=== PATIENT | female | born 1930 | race African-American/Black ===

== ENCOUNTER 2018-08-09 09:29 | Emergency (ER) | payer OTHER ==
[~2018-08-09] VITALS: Ht 167.6 cm; Wt 72.6 kg
[~2018-08-09 09:29] MED LIST: AMLODIPINE BESY10 MG PO; CLONIDINE HCL0.2 M2 PO; HCTZ PO; LISINOPRIL20 MG PO; NORCO 5-325 TA1 EACH PO; TOPROL XL100 MG PO; ZOCOR 20 MG TAB20 M1 PO
[2018-08-09 09:35] VITALS: BP 124/71
[2018-08-09] MEDS ORDERED: HYDROXYZINE HCL25 M1 PO (10:08)
[2018-08-09] MEDS ORDERED: PREDNISONE 20 M20 MG PO (10:11)
[2018-08-09] MEDS ORDERED: PEPCID20 MG PO (10:11)
== END 2018-08-09 10:20 | disposition home or self-care (01) ==
LOC: ER 09:29
DX: L50.9 Urticaria, unspecified (principal); I10 Essential (primary) hypertension; E78.00 Pure hypercholesterolemia, unspecified; Z85.3 Personal history of malignant neoplasm of breast; Z85.41 Personal history of malignant neoplasm of cervix uteri

== ENCOUNTER 2019-03-16 17:54 | Inpatient (IN) | payer OTHER ==
[~2019-03-16] VITALS: Ht 165.1 cm; Wt 71.9 kg
[~2019-03-16 17:54] MED LIST changes: +HYDROXYZINE HCL25 M1 PO; +PEPCID20 MG PO; +PREDNISONE 20 M20 MG PO
[2019-03-16 17:58] VITALS: BP 180/88
[2019-03-16 19:13] LABS: ABSOLUTE NEUTROPHILS 3.2 thou/uL (1.4-8.2); BASOPHILS 0.6 % (0.0-2.0); HEMATOCRIT 35.7 % (37.0-47.0); HEMOGLOBIN 12.1 gm/dL (12.0-15.0); LYMPHOCYTES 27.5 % (24.0-44.0); MCH 29.5 pg (26.0-34.0); MCHC 33.8 g/dL (28.0-37.0); MCV 87.3 fL (80.0-100.0); PLATELET COUNT 190 thou/uL (150-400); POLYS 59.9 % (36.0-66.0); RBC 4.09 mil/uL (4.20-5.00); RDW 13.7 % (10.5-14.5); WBC 5.3 thou/uL (4.0-11.0)
[2019-03-16] MEDS ORDERED: CARVEDILOL25 MG PO (19:17)
[2019-03-16] MEDS ORDERED: OXYBUTYNIN 5 MG5 M2 PO (19:18)
[2019-03-16 19:46] LABS: POC CA IONIZED 4.7 mg/dL (4.5-5.3); POC CREATININE 1.9 mg/dL (0.6-1.3); POC HEMOGLOBIN 11.6 g/dL (12.0-15.0); POC POTASSIUM 4.6 mmol/L (3.5-5.1)
[2019-03-16 20:18] LABS: URINE BILIRUBIN NEGATIVE (Negative); URINE BLOOD TRACE (Negative); URINE CLARITY CLEAR; URINE COLOR YELLOW; URINE GLUCOSE-RANDOM* NEGATIVE (Negative); URINE KETONES NEGATIVE (Negative); URINE NITRITE-REFLEX NEGATIVE (Negative); URINE PROTEIN (DIPSTICK) NEGATIVE (Negative); URINE UROBILINOGEN 0.2 E.U./dl (0.2-1.0)
[2019-03-16 20:21] LABS: URINE LEUKOCYTES-REFLEX 1+ (Negative)
[2019-03-16 20:25] LABS: CALCIUM 8.4 mg/dL (8.5-10.1); CREATININE 1.6 mg/dL (0.6-1.0); POTASSIUM 4.6 mmol/L (3.5-5.1)
[2019-03-16 20:31] LABS: ALBUMIN 3.2 g/dL (3.4-5.0); BACTERIA-REFLEX 1-9 Few /HPF (None Seen); CASTS None Seen /LPF (None Seen); CRYSTALS None Seen /LPF (None Seen); MUCUS 0-3 Light strn/LPF (None Seen); SQUAMOUS 0-3 Few /LPF (0-3); TOTAL BILIRUBIN 0.4 mg/dL (<0.1-1.0); TOTAL PROTEIN 7.2 g/dL (6.4-8.2); URINE RBC 0-2 Rare /HPF (0-2); URINE WBC-REFLEX 6-15 Few /HPF (0-5); WBC CLUMPS Rare (None Seen)
[2019-03-16 20:35] VITALS: BP 138/60
[2019-03-16 20:35] LABS: APTT 26.1 Seconds (24.5-32.8); PROTIME 10.4 Seconds (9.3-11.4)
[2019-03-16 21:02] VITALS: BP 138/60
[2019-03-16 21:16] VITALS: BP 152/69
[2019-03-16 23:45] LABS: CHOLESTEROL 166 mg/dL (<200); HDL CHOLESTEROL 63 mg/dL (>40); LDL CHOLESTEROL 94 mg/dL (<100); TC:HDL 2.6 Ratio (Not establshd); TRIGLYCERIDE 47 mg/dL (<150); VLDL 9 mg/dL (<40)
[2019-03-16 23:54] LABS: SERUM ASSESSMENT Clear
[2019-03-17] VITALS (7 sets, daily range): BP systolic 140–184; BP diastolic 62–81
--- NOTE | 2019-03-17 05:57 | NUR ---
PT ARRIVED VIA CART FROM ER. PLACED IN ROOM 359. ADMISSION ASSESSMENTS COMPLETED. NIH BRIEF SCORE ZERO. PT MAKING PROGRESS TOWARDS GOALS. PT INCONTINENT X2 OVERNIGHT. DAUGHTER STATES SHE IS OFTEN INCONTINENT BUT MOSTLY NIGHT DURING SLEEP. PT UP TO TOILET X2 WITH ONLY SBA. DENIED ANY DIZZY OR LIGHTHEADEDNESS. STABLE GAIT.
--- NOTE | 2019-03-17 08:08 | EKG ---
[address] [address] ELECTROCARDIOGRAM REPORT Name: SHARMAINEALDO Room #: 359-P ADM IN M.R.#: [id number] Admission: 03/16/19 Attend Phys: Killian Cervantes MD Discharge: Date of : 31 Report #: [id number] THIS REPORT FOR: //name// [facility] ED Test Date: 2019-03-16 Test Time: 19:08:09 Pat Name: ALDO SCHMID Department: Room: [facility] Gender: F Kindergarten Paraprofessional: : 1930 Requested By: Radha Samano Order Number: [id number] MD: Shahzad Sanchez Measurements Intervals [place] Rate: 70 P: 50 NM: 191 QRS: -10 QRSD: 78 T: 17 QT: 375 QTc: 405 Interpretive Statements Sinus tachycardia No previous ECG available for comparison Electronically Signed On 03-17-2019 8:08:15 CDT by Shahzad Sanchez [email or web address] <ELECTRONICALLY SIGNED> By: Shahzad Sanchez MD 03/17/19 [phone] MD LIBBY Aguilar
[2019-03-17 12:29] LABS: CALCIUM 8.7 mg/dL (8.5-10.1); CREATININE 1.2 mg/dL (0.6-1.0); POTASSIUM 3.8 mmol/L (3.5-5.1)
--- NOTE | 2019-03-17 13:35 | NUR ---
Today patient had carotid US , which reported no hemodynamically significant stenosis; MRI today reported no evidence of acute infarction. Echocardiogram results pending at this time. Patient is working towards discharge goals.
--- NOTE | 2019-03-17 14:15 | NUR ---
INITIAL ASSESSMENT: SW reviewed chart and spoke with nursing and attending physician. Pt was admitted from home due to TIA. Therapy ordered to evaluate pt. SW met with pt and dtr at bedside. Introduced role of SW. Pt is alert/orientated x 4. Pt reports she lives at home with her dtr. Prior to admission, pt was independent with ADLS. Pt has a cane and walker, but does not use them. 1 step to enter the home. No steps inside. No hx of services or post-acute placement. Pt's PCP is at [facility]-unable to recall physician's name. Plan is for pt to discharge home when medically stable. SW is following to assist as needed with discharge planning..
--- NOTE | 2019-03-17 14:32 | 2DMMODE ---
[facility] [address] [place] [address] 2 D/M-MODE ECHOCARDIOGRAM Name: ALDO SCHMID Room #: 359-P ADM IN .R.#: [id number] Admission: 03/16/19 Attend Phys: Killian Cervantes MD Discharge: Date of : 31 Report #: [id number] THIS REPORT FOR: //name// APPROVED REPORT Study performed: 03/17/2019 12:41:38 EXAM: Comprehensive 2D, Doppler, and color-flow Echocardiogram Patient Location: Echo lab Room #: 359 Status: routine BSA: 1.79 HR: 68 bpm BP: 149/66 mmHg Rhythm: NSR Other Information Study Quality: Adequate Indications TIA VS. CVA. Hx: HTN, HLP, CA. Echo Enhancing Agent Indication: Rule out Shunt Agent(s) / Amount(s) Used: Agitated Saline 6 cc 2D Dimensions RVDd: 39.98 mm IVSd: 10.42 (7-11mm) LVOT Diam: 20.58 (18-24mm) LVDd: 41.95 mm PWd: 10.56 (7-11mm) LVDs: 30.64 (25-40mm) Aortic Root: 31.70 mm Volumes Left Atrial Volume (Systole) Single Plane 4CH: 54.17 mL Single Plane 2CH: 62.05 mL LA ESV Index: 35.00 mL/m2 Aortic Valve AoV Peak Anthony.: 1.46 m/s AO Peak Gr.: 8.49 mmHg LVOT Max P.22 mmHg LVOT Max V: 1.03 m/s NADJA Vmax: 2.34 cm2 [facility] [address] [place] [address] 2 D/M-MODE ECHOCARDIOGRAM Name: ALDO SCHMID Room #: 359-P [facility] IN [facility].#: [id number] Admission: 03/16/19 Attend Phys: Killian Cervantes MD Discharge: Date of : 31 Report #: [id number] Mitral Valve E/A Ratio: 0.7 MV Decel. Time: 256.53 ms MV E Max Anthony.: 0.96 m/s MV A Anthony.: 1.37 m/s MV PHT: 74.39 ms IVRT: 92.27 ms Pulmonary Valve PV Peak Anthony.: 0.92 m/s PV Peak Gr.: 3.40 mmHg Pulmonary Vein P Vein S: 0.47 m/s P Vein A: 0.33 m/s P Vein D: 0.23 m/s P Vein A Dur.: 101.5 msec P Vein S/D Ratio: 2.04 Tricuspid Valve TR Peak Anthony.: 2.50 m/s RAP Estimate: 5.00 mmHg TR Peak Gr.: 24.00 mmHg PA Pressure: 29.00 mmHg Left Ventricle The left ventricle is normal size. There is normal LV segmental wall motion. Mild basal septal hypertrophy is present. Left ventricular systolic function is normal. LVEF is 55%. Mild diastolic dysfunction Right Ventricle The right ventricle is normal size. The right ventricular systolic function is normal. Atria Left atrium is mildly dilated. No shunting noted by contrast bubble injection. The right atrium size is normal. 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 Atrial septal aneurysm Aortic Valve The aortic valve is trileaflet, mildly sclerotic No aortic regurgitation is present. There is no aortic valvular stenosis. Mitral Valve Mitral valve leaflets are mildly thickened. Mild mitral annular calcification. Trace to mild mitral regurgitation. No evidence of mitral valve stenosis. [facility] [address] [place] [address] 2 D/M-MODE ECHOCARDIOGRAM Name: ALDO SCHMID Room #: 359-P [facility] IN ..#: [id number] Admission: 03/16/19 Attend Phys: Killian Cervantes MD Discharge: Date of : 31 Report #: [id number] Tricuspid Valve The tricuspid valve is normal in structure. Trace to mild tricuspid regurgitation. Estimated PAP is 30mmHg. Pulmonic Valve The pulmonary valve is normal in structure. There is no pulmonic valvular regurgitation. Great Vessels The aortic root is normal in size. Ascending aorta is not well visualized. IVC is normal in size and collapses >50% with inspiration. Pericardium There is no pericardial effusion. <Conclusion> Left ventricular systolic function is normal. There is normal LV segmental wall motion. LVEF is 55%. Mild diastolic dysfunction The right atrium size is normal. 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 Atrial septal aneurysm No shunting noted by contrast bubble injection. The aortic valve is trileaflet, mildly sclerotic. No aortic regurgitation, no stenosis Mitral valve leaflets are mildly thickened. Mild mitral annular calcification. Trace to mild mitral regurgitation. Trace to mild tricuspid regurgitation. Estimated pulmonary artery pressure of 30mmHg. There is no pericardial effusion. <ELECTRONICALLY SIGNED> By: Lenadr Lopez MD, FACC 03/17/19 143 143 143 Lenard Lopez MD, FACC /INF
[2019-03-18 04:36] VITALS: BP 146/60
[2019-03-18 05:21] LABS: HEMATOCRIT 34.5 % (37.0-47.0); HEMOGLOBIN 11.6 gm/dL (12.0-15.0); MCH 29.4 pg (26.0-34.0); MCHC 33.5 g/dL (28.0-37.0); MCV 87.8 fL (80.0-100.0); RBC 3.94 mil/uL (4.20-5.00); RDW 13.6 % (10.5-14.5); WBC 5.5 thou/uL (4.0-11.0)
[2019-03-18 05:37] LABS: CALCIUM 8.6 mg/dL (8.5-10.1); CREATININE 1.2 mg/dL (0.6-1.0)
[2019-03-18 07:25] VITALS: BP 148/63
--- NOTE | 2019-03-18 07:49 | NUR ---
PT MAKING PROGRESS TOWARDS GOALS. OCCASIONALLY INCONTINENT OVERNIGHT OF URINE, PT PREFERS TO WEAR BRIEFS WHILE IN BED. DENIES ANY COMPLAINTS. STEADY GAIT WHEN UP TO TOILET. DENIES ANY SOA WITH ACTIVITY, DENIES ANY WEAKNESS ON THE LEFT SIDE.
--- NOTE | 2019-03-18 12:31 | NUR ---
DISCHARGE NOTE: SW reviewed chart and spoke with nursing and attending physician. Pt is medically stable for discharge home today. 5N evaluated pt yesterday and states pt is too high level for 5N. SW met with pt and dtr at bedside to discuss discharge plan. Pt and dtr deny having any discharge needs. Pt will follow up with her PCP. Pt's family to provide transportation home. No additional SW needs identified at this time, but is available to assist should needs arise.
[2019-03-18] MEDS ORDERED: ASPIR 8181 MG PO (13:21)
[2019-03-18 13:56] VITALS: BP 148/63
--- NOTE | 2019-03-18 14:10 | NUR ---
ASSUMED PAIENT CARE AT 0700. A/O X4. UP AD LUCIAN. NO WEAKNESS. PROGRESSING TOWARDS POC GOALS. DC TO HOME NOW.
--- NOTE | 2019-03-19 14:17 | HC ---
[facility] [place] [address] CONSULTATION Name: ALDO SCHMID Room #: 359-P [facility] IN ..#: [id number] Admission: 03/16/19 Attend Phys: Killian Cervantes MD Discharge: 03/18/19 Date of : 31 Report #: [id number] THIS REPORT FOR: //name// CC: FAM unknown Killian Cervantes DATE OF SERVICE: 03/17/2019 HISTORY OF PRESENT ILLNESS: This is an 88-year-old female patient who was evaluated by me for the left-sided numbness. It started acutely. It was noticed by Emergency Room physician, but by the time I saw the patient in the Emergency Room, the patient's symptoms have mostly resolved. The patient was seen in the Emergency Room yesterday and she was seen today. In the Emergency Room, this patient had a CT angiogram and that was reviewed with the radiologist and there is no stroke or any occlusion, which was noticed. The patient's MRI is pending. The patient denies this kind of symptom before. She does not know anything which makes it better or worse. REVIEW OF SYSTEMS: Indicate that she does have a history of hypertension, high cholesterol, breast carcinoma, uterine carcinoma. She is on multiple medications. PAST MEDICAL HISTORY: Negative for CVA. FAMILY HISTORY: Negative for early age CVA. SOCIAL HISTORY: She does not drink alcohol. PHYSICAL EXAMINATION: The patient's examinations indicate she is alert. She is responsive. She can follow simple and complex command. That examination is same as yesterday. Her speech looks intact. Cranial nerve examination 2-12 does not appear to be showing any definite abnormality. She did have some facial weakness yesterday, but that is resolved today. She is still slightly weak in the left upper and left lower extremity, but is much better than yesterday. No change in the rest of the examination. Blood pressure is 149/66, respiration is 12, pulse is 68, temperature is 98.1. LABORATORY DATA: WBC count is 5.3. It looks like this patient had a CT angiogram yesterday in the Emergency Room, but her creatinine was 1.9. Because of that, I will suggest monitoring the patient's kidney function. CT angiogram was negative and it was done before my consultation. IMPRESSION: This patient's presentation is consistent with cerebrovascular accident. However, the history is not very classical. We will await the MRI to see what it shows. The patient's creatinine was high at 1.9. She did get the contrast, although she also got a fluid bolus of 1000 mL. I will still suggest [address] [address] CONSULTATION Name: ALDO SCHMID Room #: 359-P [facility] IN ..#: [id number] Admission: 03/16/19 Attend Phys: Killian Cervantes MD Discharge: 03/18/19 Date of : 31 Report #: [id number] repeating the creatinine to make sure that did not change. I went ahead and ordered that. She will need PT, OT and speech therapy and we will see how she does. I had discussed extensively with the patient and approximately 50 minutes of time was spent taking care of this patient yesterday and today and majority of that time was spent counseling the patient, especially counseling about TPA or not TPA, and other aspect with the patient. <ELECTRONICALLY SIGNED> By: Clayton Hunt MD 03/19/19 1417 [id number] Clayton Hunt MD /nt
--- NOTE | 2019-03-30 12:00 | HC ---
[facility] [place] [address] CONSULTATION Name: ALDO SCHMID Room #: 359-P [facility] IN .R.#: [id number] Admission: 03/16/19 Attend Phys: Killian Cervantes MD Discharge: 03/18/19 Date of : 31 Report #: [id number] THIS REPORT FOR: //name// CC: FAM unknown Killian Cervantes DATE OF SERVICE: 03/17/2019 1HISTORY OF PRESENT ILLNESS: The patient is an 88-year-old -Iranian female who was admitted with left-sided weakness and left-sided numbness. No speech problems. She is undergoing MRI scan and Doppler evaluation as part of a workup to rule out a CVA. She notes that her symptoms involving the left side are much improved. Denies any current problems with coordination or focal weakness. We are seeing her in Rehabilitation Medicine consultation. She has also been diagnosed with urinary tract infection and has been started on Rocephin. She also has some acute renal insufficiency superimposed on chronic kidney disease and is being gently hydrated. She is being allowed permissive hypertension. PAST MEDICAL HISTORY: Includes hypertension, elevated cholesterol, uterine cancer, status post hysterectomy, breast cancer, status post right mastectomy, foot surgery, skin graft, right hand. HABITS: Former tobacco smoker for 20 years. Noted to be a light smoker per report. No history of alcohol abuse. SOCIAL HISTORY: She lives in a house with her daughter, 1 floor, 2 steps. Did not utilize gait aids except that she would use a cane long distances. Daughter is retired and could assist. There are other daughters involved as well. MEDICATIONS: Please see the full medication listing. ALLERGIES: No known drug allergies. REVIEW OF SYSTEMS: No current complaints of chest pain, shortness of breath or abdominal discomfort. PHYSICAL EXAMINATION: GENERAL: An 88-year-old -Iranian female, in no obvious distress. The patient is alert, pleasant. VITAL SIGNS: Last recorded temperature 98.2, pulse 74, respirations 16, blood pressure 140/74. HEENT: Appeared to be benign. NEUROLOGIC: Cranial nerves grossly intact. Facies are symmetric. She has functional range of motion of both upper extremities. I could not detect any obvious focal weakness of either the right upper or left upper extremity. She [address] [address] CONSULTATION Name: ALDO SCHMID Room #: 359-P [facility] IN .R.#: [id number] Admission: 03/16/19 Attend Phys: Killian Cervantes MD Discharge: 03/18/19 Date of : 31 Report #: [id number] appeared to have good coordination. Lower extremities, no focal calf swelling. Appeared to have reasonable strength at least a grade 4-/5. No obvious focal coordination deficits. Sensation was intact to simultaneous stimulation bilateral upper and lower extremities. IMPRESSION: An 88-year-old right-handed -Iranian female with the following problem list: 1. Left-sided weakness and numbness, which are much improved, rule out cerebrovascular accident versus transient ischemic attack. 2. Urinary tract infection. 3. Acute renal insufficiency superimposed on chronic kidney disease. 4. Hypertension. 5. Hyperlipidemia. PLAN: Diagnostic workup continues. Therapies are to evaluate her regarding her current functional level. We will be glad to follow along with you regarding her rehab therapy needs. <ELECTRONICALLY SIGNED> By: Marin Miller MD 03/30/19 [id number] [id number] Marin Miller MD /[facility]
== END 2019-03-18 14:16 | disposition home or self-care (01) | DRG 69 ==
LOC: ER 17:54 → EROBS 19:35 → 3W 19:35 → ENTRNSPT 03-18 14:09 → EDTRNSPTSTS 03-18 14:12 → 3W 03-18 14:16
PROVIDERS: Nurse Practitioner Acute Care; Psychiatry & Neurology Neuromuscular Medicine; Student in an Organized Health Care Education/Training Program; ADMIT Hospitalist
DX: G45.9 Transient cerebral ischemic attack, unspecified (principal); N17.0 Acute kidney failure with tubular necrosis; N39.0 Urinary tract infection, site not specified; E78.00 Pure hypercholesterolemia, unspecified; N18.9 Chronic kidney disease, unspecified; I12.9 Hypertensive chronic kidney disease with stage 1 through stage 4 chronic kidney disease, or unspecified chronic kidney disease; N32.81 Overactive bladder; E78.5 Hyperlipidemia, unspecified; Z85.42 Personal history of malignant neoplasm of other parts of uterus; Z85.3 Personal history of malignant neoplasm of breast; Z90.710 Acquired absence of both cervix and uterus; Z90.11 Acquired absence of right breast and nipple; Z87.891 Personal history of nicotine dependence
CPT/HCPCS: 10879

== ENCOUNTER 2021-04-18 12:48 | Emergency (ER) | payer OTHER ==
[~2021-04-18] VITALS: Ht 167.6 cm; Wt 72.6 kg
[~2021-04-18 12:48] MED LIST changes: +ASPIR 8181 MG PO; +CARVEDILOL25 MG PO; +OXYBUTYNIN 5 MG5 M2 PO
[2021-04-18 13:50] LABS: URINE BILIRUBIN NEGATIVE (Negative); URINE BLOOD 1+ (Negative); URINE COLOR YELLOW; URINE GLUCOSE-RANDOM* NEGATIVE (Negative); URINE KETONES NEGATIVE (Negative); URINE NITRITE-REFLEX NEGATIVE (Negative); URINE PROTEIN (DIPSTICK) 1+ (Negative); URINE UROBILINOGEN 0.2 E.U./dl (0.2-1.0)
[2021-04-18 13:50] LABS: HEMATOCRIT 30.4 % (37.0-47.0); HEMOGLOBIN 10.2 gm/dL (12.0-15.0); MCH 27.3 pg (26.0-34.0); MCHC 33.6 g/dL (28.0-37.0); MCV 81.1 fL (80.0-100.0); PLATELET COUNT 447 thou/uL (150-400); RBC 3.74 mil/uL (4.20-5.00); RDW 15.5 % (10.5-14.5); WBC 11.3 thou/uL (4.0-11.0)
[2021-04-18 13:51] LABS: URINE CLARITY HAZY; URINE LEUKOCYTES-REFLEX 3+ (Negative)
[2021-04-18 13:58] LABS: CALCIUM 8.9 mg/dL (8.5-10.1); CREATININE 1.6 mg/dL (0.6-1.0); POTASSIUM 4.3 mmol/L (3.5-5.1)
[2021-04-18 13:59] LABS: BACTERIA-REFLEX >30 Many /HPF (None Seen); SQUAMOUS 0-3 Few /LPF (0-3); URINE RBC 3-10 Few /HPF (NONE SEEN); URINE WBC-REFLEX >25 Many /HPF (0-5)
[2021-04-18 14:00] LABS: CASTS None Seen /LPF (None Seen); CRYSTALS None Seen /LPF (None Seen)
[2021-04-18 14:08] LABS: ALBUMIN 2.7 g/dL (3.4-5.0); MAGNESIUM 2.2 mg/dL (1.8-2.4); TOTAL BILIRUBIN 0.5 mg/dL (0.2-1.0); TOTAL PROTEIN 7.8 g/dL (6.4-8.2)
[2021-04-18 14:24] LABS: ABSOLUTE NEUTROPHILS 9.3 thou/uL (1.4-8.2)
[2021-04-18] MEDS ORDERED: CEPHALEXIN 250250 M1 PO (15:35)
[2021-04-18 15:43] VITALS: BP 143/55
--- NOTE | 2021-04-18 15:43 | EKG ---
[address] [facility] [place] [address] ELECTROCARDIOGRAM REPORT Name: ALDO SCHMID Room #: REG SCOTTIE Galarza#: [id number] Admission: 04/18/21 Attend Phys: Discharge: Date of : 31 Report #: [id number] [facility] ED Test Date: 2021-04-18 Test Time: 13:08:38 Pat Name: ALDO SCHMID Department: Room: Gender: F Marketing Proposal Coordinator: SHELDON : 1930 Requested By: Jackelyn Hamm Order Number: [id number] MD: Kevin Reyes Measurements Intervals [place] Rate: 90 P: 40 RI: 167 QRS: -13 QRSD: 83 T: 9 QT: 335 QTc: 410 Interpretive Statements Sinus rhythm Left atrial enlargement Probable left ventricular hypertrophy Inferior infarct, old Compared to ECG 03/16/2019 19:08:09 Atrial abnormality now present Myocardial infarct finding now present Sinus tachycardia no longer present Electronically Signed On 04-18-2021 15:42:49 BLOCKING MACHINE OPERATOR by Kevin Reyes [email or web address] <ELECTRONICALLY SIGNED> By: Kevin Reyes MD, [facility] 04/18/21 1542 D: [id number] Kevin Reyes MD, FACC /EPI
== END 2021-04-18 15:43 | disposition home or self-care (01) ==
LOC: ER 12:48
PROVIDERS: Nurse Practitioner Family
DX: N39.0 Urinary tract infection, site not specified (principal); Z20.822 Contact with and (suspected) exposure to COVID-19; R53.1 Weakness; E78.5 Hyperlipidemia, unspecified; I12.9 Hypertensive chronic kidney disease with stage 1 through stage 4 chronic kidney disease, or unspecified chronic kidney disease; N18.30 Chronic kidney disease, stage 3 unspecified; E78.00 Pure hypercholesterolemia, unspecified; Z85.42 Personal history of malignant neoplasm of other parts of uterus; Z85.3 Personal history of malignant neoplasm of breast; Z90.11 Acquired absence of right breast and nipple; Z90.710 Acquired absence of both cervix and uterus; Z98.890 Other specified postprocedural states; Z79.82 Long term (current) use of aspirin; Z79.891 Long term (current) use of opiate analgesic; Z79.899 Other long term (current) drug therapy